=== PATIENT | female | born 2000 | race Caucasian/White ===

== ENCOUNTER 2019-01-24 00:28 | Inpatient (IN) | payer MEDICAID ==
[2019-01-24] MEDS ORDERED: Nalbuphine 10 MG/1 ML Vial IVPUSH PRN (02:30)
[2019-01-24] MEDS ORDERED: Citric Acid/Sodium Citrate Solution 30 ML Cup PO ONE (02:30)
[2019-01-24] MEDS ORDERED: ceFAZolin 1 GM in Premix Bag 1 BAG IV ONE (02:30)
[2019-01-24] MEDS ORDERED: ceFAZolin 2 GM in Premix Bag 1 BAG IV ONE (02:30)
[2019-01-24] MEDS ORDERED: Sodium Chloride 0.9% 10 ML Syringe FLUSH PRN (02:30)
[2019-01-24] MEDS ORDERED: Oxytocin/Lactated Ringers 20 UNIT/1,000 ML BAG IV SCH (02:30)
[2019-01-24] MEDS ORDERED: Lactated Ringers 1,000 ML IV SCH (02:30)
[2019-01-24] MEDS ORDERED: Metoclopramide 10 MG/2 ML SDV IVPUSH ONE (02:30)
--- NOTE | 2019-01-24 03:03 | PCM.LDHP ---
L&D History of Present Illness - General Date of Service: 01/24/19 Admit Problem/Dx: Patient Status Order with Admit Dx/Problem 01/24/19 00:56 Patient Status [ADT] Routine 01/24/19 02:30 Patient Status [ADT] Routine Admission Diagnosis/Problem Admission Diagnosis/Problem 01/24/19 02:47 Carroll is a 18-year-old 4 para 1112 white female in early, active labor , with a history of 2, desiring to do a trial of labor after section for vaginal after section was now developed severe abdominal pain in the area of her scar. Source of Information: Patient History Limitations: Reports: No Limitations - History of Present Illness Introduction:: Carroll is a 18-year-old 4 para 1112 white female in early, active labor , with a history of 2, desiring to do a trial of labor after section for vaginal after section was now developed severe abdominal pain in the area of her scar. She is approximately 38 -2/7 weeks gestational age based on a certain last menstrual period and supported by at least 3 ultrasounds. First ultrasound being done at 7-3/7 weeks gestational age. She started in labor during the night of 01/23/2019 and arrived in labor and delivery for observation.E patient had previously requested a trial of labor. The procedure of trial of labor with 2 C-sections as risk of uterine scar separation in the range of 2-3%, benefits, limitations and possible inability to successfully all discussed in detail with patient by Dr. Butcher during her course and again by myself at this time. She wished to proceed. Her contractions were mild to moderate and during the course of the very early evaluation in labor and delivery she developed severe pain she described as a tearing sensation in the area of her incision. She denied any bleeding. heart tones are reassuring. Contractions continue at approximately every 3-4 minutes. Because of this latest velamentously made to proceed with repeat lower uterine section transverse section through Pfannenstiel skin incision under spinal block. Consent is signed. Laboratory testing has been accomplished. 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 Her estimated date of delivery 01/19/2019 as by patient's working LMP supported by 3 ultrasounds. She transferred her care from [place] to Dr. Butcher's practice on December 07, 2018 at 31-3/7 weeks gestational age. She has had an unremarkable course since that time. Her previous deliveries have included: 1. term at 30-0/7 weeks delivered on 01/25/2016. 8 pound 6.2 ounce female delivered by primary section for breech presentation. 2. delivery at 36-0/7 weeks gestational age on 04/30/2017. 5 lbs. 0 oz.? repeat section done as the institution she delivered and did not allow for . Third spontaneous 10/2017 at 10-0/7 weeks gestational age. Past gynecologic history includes history of chlamydia. She is not using any control at the time of conception. Weight gain during the course of was approximately 30 pounds. laboratory testing: Blood is O+. Antibiotic screen was negative. Hemoglobin at first visit was 13.4 g/dL. Platelets are 472,000 at the same time. She is rubella immune. RPR is nonreactive. Hepatitis B surface antigen test was negative. HIV assay was nonreactive. Chlamydia and gonorrhea at first visit was negative. Second trimester testing showed hemoglobin 13.4 g/dL. Platelets are 472,000. One-hour GTT is 136 done on 2018. 3R GTT was not performed as patient's physician used 1 40 mg/dL as a cut off for abnormal 1 hour GTT. RPR through trimester was nonreactive. Group B strep screen was positive. Allergies: Bananas and Demerol. Medications: vitamins Past medical history: Unremarkable Past surgical history: 1. 2 2. Tonsillectomy 3. Laparoscopic Cholecystectomy Family history: Mother's health and family history unknown. Father is alive. No significant health problems noted. Paternal grandmother secondary to heart disease with NH in her 60s. Paternal grandfather secondary to pancreatic cancer. No anesthesia, bleeding, blood clotting problems noted in the family. Social history: Patient is single. Lives in the [facility] and then recently relocated from [place]. She does not use any 16 pounds L call, drugs or tobacco. Significant other's name is Luis Angel Bobby. Review of systems: Patient is reporting persistent contractions on a every 3 minute basis. Now has developed severe pain in the area of the previous C- section scar. She reports "the baby is trying to break through her incision" Skin: Negative Lungs: No infectious symptoms or shortness of breath Cardiovascular: No chest pain or exercise intolerance Breasts: No lumps, changes in size, pain, dimpling, discharge or axillary or supraclavicular concerns. GI: Negative : Negative Musculoskeletal: Negative Neurological: Negative In general the patient is well-developed, well-nourished, pleasant female of stated age in distress secondary to the pain described above. Vital signs stable. Patient is afebrile. Her weight evaluation in clinic for this 298 pounds. Blood pressure then was 124/66, pulse 101. Skin is warm dry without lesions. HEENT, neck and back within normal limits. Lungs are clear with good breath sounds in all lung jason. Cardiovascular exam shows regular and rhythm without murmurs. Breast evaluation not done at this time. Abdomen is gravid with fundal height consistent with term Genital exam done upon admission shows cervix to be 1 cm, 50% effaced, soft, -3 , mid position. Extremities and neurological exam are grossly within normal limits. 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: Reports: , Spontaneous - Past Surgical History GI Surgical History: Reports: Cholecystectomy Female Surgical History: Reports: Section (x2) H&P Review of Systems - Review of Systems: Review Of Systems: See Below L&D Exam - Exam Exam: See Below - Vital Signs Vital Signs: Last Vital Signs Temp 36.9 C 01/24/19 00:36 Pulse 91 01/24/19 00:36 Resp 18 01/24/19 00:36 BP 139/86 01/24/19 00:36 Pulse Ox 99 01/24/19 00:36 Weight: 138.074 kg Problem List Initiated/Reviewed/Updated: Yes Orders Last 24hrs: Active Orders 24 hr Category Date Time Status Patient Status [ADT] Routine ADT 01/24/19 02:30 Active Antiembolic Devices [RC] .Routine Care 01/24/19 02:35 Active Communication Order [RC] ROUTINE Care 01/24/19 02:30 Active Heart Tones [RC] PER UNIT ROUTINE Care 01/24/19 02:30 Active Non Stress Test [RC] PER UNIT ROUTINE Care 01/24/19 00:56 Active Peripheral IV Care [RC] . DIRECTED Care 01/24/19 02:31 Active Procedure Site Prep Instruct [RC] ASDIRECTED Care 01/24/19 02:30 Active Urinary Catheter Assessment [RC] ASDIRECTED Care 01/24/19 02:30 Active VTE/DVT Education [RC] PER UNIT ROUTINE Care 01/24/19 02:35 Active Verify Patient Consent Obtain [RC] PER UNIT ROUTINE Care 01/24/19 02:30 Active Vital Signs [RC] PER UNIT ROUTINE Care 01/24/19 00:56 Active Nothing Per Oral Diet [DIET] Diet 01/24/19 Breakfast Active CBC WITH AUTO DIFF [HEME] Stat Lab 01/24/19 02:30 Ordered RAPID PLASMA REAGIN,RPR [CHEM] Routine Lab 01/24/19 02:30 Ordered TYPE AND SCREEN [BBK] Routine Lab 01/24/19 02:30 Ordered Lactated Ringers [Ringers, Lactated] 1,000 ml Med 01/24/19 02:30 Active IV ASDIRECTED Nalbuphine [Nubain] Med 01/24/19 02:30 Active 10 mg IVPUSH Q2H PRN Oxytocin/Lactated Ringers [Pitocin in LR 20 Units/1,000 Med 01/24/19 02:30 Active ML] 20 unit in 1,000 ml IV TITRATE Sodium Chloride 0.9% [Saline Flush] Med 01/24/19 02:30 Active 10 ml FLUSH ASDIRECTED PRN ceFAZolin [Ancef] 1 gm Med 01/24/19 02:30 Active Premix Bag 1 bag IV ONETIME ceFAZolin [Ancef] 2 gm Med 01/24/19 02:30 Active Premix Bag 1 bag IV ONETIME DVT/VTE Prophylaxis Reflex [OM.PC] Routine Oth 01/24/19 02:30 Ordered Peripheral IV Insertion Adult [OM.PC] Routine Oth 01/24/19 02:30 Ordered Schedule Procedure [COMM] Per Unit Routine Oth 01/24/19 02:30 Ordered Schedule Procedure [COMM] Urgent Oth 01/24/19 02:47 Ordered Sequential Compression Device [OM.PC] Per Unit Routine Oth 01/24/19 02:35 Ordered Resuscitation Status Routine Resus Stat 01/24/19 00:56 Ordered Medication Orders Lactated Ringer's (Ringers, Lactated) 1,000 mls @ 125 mls/hr IV ASDIRECTED JACKIE Cefazolin Sodium/Dextrose 1 gm (/ Premix) 50 mls @ 100 mls/hr IV ONETIME ONE Stop: 01/24/19 02:59 Cefazolin Sodium/Dextrose 2 gm (/ Premix) 50 mls @ 100 mls/hr IV ONETIME ONE Stop: 01/24/19 02:59 Oxytocin/Lactated Ringer's (Pitocin In Lr 20 Units/1,000 Ml) 20 unit in 1,000 mls @ 500 mls/hr IV TITRATE JACKIE; Protocol Nalbuphine HCl (Nubain) 10 mg IVPUSH Q2H PRN PRN Reason: Pain Sodium Chloride (Saline Flush) 10 ml FLUSH ASDIRECTED PRN PRN Reason: Keep Vein Open Assessment/Plan Comment:: 1. 38-2/7 week intrauterine , early active labor, history of previous section 2 with desire for trial of labor after section for vaginal after section now experiencing severe incisional pain. Cannot rule out separation of uterine scar. 2. Group B strep status positive 3. RPR nonreactive, rubella shows immunity. 4. Patient plans to breast-feed 5. Risk factors for surgery include history of 2, obesity with body mass index of 44 Plan: 1. Repeat lower uterine segment transverse section through Franciscan incision under spinal block. Procedure, risks, benefits, alternatives of care discussed due to patient. She appears understand and wishes to proceed. Consent is signed. 2. Routine preoperative laboratory testing including CBC, type and screen, RPR. 3. Ancef 3 g IV preop for infection prophylaxis 4. DVT prophylaxis with SCDs 5. Pediatrics to attend delivery for care of the baby.
[2019-01-24] MEDS ORDERED: Morphine PF 10 MG/10 ML SDV ONE (03:05)
[2019-01-24] MEDS ORDERED: ceFAZolin 1 GM Vial ONE ×2 (03:05→03:31)
[2019-01-24] MEDS ORDERED: Phenylephrine 1% 10 MG/ML SDV ONE (03:05)
[2019-01-24] MEDS ORDERED: Bupivacaine 0.5% 30 ML SDV ONE (03:17)
[2019-01-24] MEDS ORDERED: Ondansetron 4 MG/2 ML SDV ONE (03:34)
[2019-01-24] MEDS ORDERED: Oxytocin 10 Units/1 ML SDV ONE (03:47)
[2019-01-24] MEDS ORDERED: Lactated Ringers 1,000 ML ONE (03:50)
[2019-01-24] MEDS ORDERED: Ketorolac 30 MG/ML SDV ONE (03:56)
[2019-01-24] MEDS ORDERED: diphenhydrAMINE 50 MG/ML SDV IVPUSH PRN ×2 (04:35→05:39)
--- NOTE | 2019-01-24 04:36 | PCM.POSTAN ---
POST ANESTHESIA ASSESSMENT - MENTAL STATUS Mental Status: Alert, Oriented - VITAL SIGNS Vital Signs: Last Vital Signs Temp 36.9 C 01/24/19 00:36 Pulse 91 01/24/19 00:36 Resp 18 01/24/19 00:36 BP 139/86 01/24/19 00:36 Pulse Ox 99 01/24/19 00:36 - RESPIRATORY Respiratory Status: Respiratory Rate WNL, Airway Patent, O2 Saturation Stable, Supplemental Oxygen - CARDIOVASCULAR CV Status: Pulse Rate WNL, Blood Pressure Stable - GASTROINTESTINAL GI Status: No Symptoms - PAIN Pain Score: 0 - POST OP HYDRATION Hydration Status: Adequate & Stable - OBSERVATIONS Free Text/Narrative:: no anesthesia complications noted
--- NOTE | 2019-01-24 04:38 | PCM.PREANE ---
Preanesthetic Assessment - Anesthesia/Transfusion/Family Hx Anesthesia History: Prior Anesthesia Without Reaction Family History of Anesthesia Reaction: No Transfusion History: No Prior Transfusion(s) - Review of Systems General: No Symptoms Pulmonary: No Symptoms Cardiovascular: No Symptoms Gastrointestinal: Abdominal Pain (incision) Neurological: No Symptoms Other: Reports: None - Physical Assessment NPO Status Date: 01/23/19 NPO Status Time: 18:00 Vital Signs: Last Vital Signs Temp 36.9 C 01/24/19 00:36 Pulse 91 01/24/19 00:36 Resp 18 01/24/19 00:36 BP 139/86 01/24/19 00:36 Pulse Ox 99 01/24/19 00:36 Height: 1.7 m Weight: 138.074 kg ASA Class: 2E Mental Status: Alert & Oriented x3 Airway Class: Mallampati = 2 Dentition: Reports: Normal Dentition Thyro-Mental Finger Breadths: 2 Mouth Opening Finger Breadths: 2 ROM/Head Extension: Full Lungs: Clear to Auscultation, Normal Respiratory Effort Cardiovascular: Regular Rate, Regular Rhythm - Lab Values: Laboratory Last Values WBC 15.64 K/mm3 (3.98-10.04) H 01/24/19 02:45 RBC 4.02 M/mm3 (3.98-5.22) 01/24/19 02:45 Hgb 10.6 gm/L (11.2-15.7) L 01/24/19 02:45 Hct 33.8 % (34.1-44.9) L 01/24/19 02:45 MCV 84.1 fl (79.4-94.8) 01/24/19 02:45 MCH 26.4 pg (25.6-32.2) 01/24/19 02:45 MCHC 31.4 g/dl (32.2-35.5) L 01/24/19 02:45 RDW Std Deviation 44.3 fL (36.4-46.3) 01/24/19 02:45 Plt Count 329 K/mm3 (182-369) 01/24/19 02:45 MPV 11.2 fl (9.4-12.3) 01/24/19 02:45 Neut % (Auto) 71.1 % (34.0-71.1) 01/24/19 02:45 Lymph % (Auto) 19.4 % (19.3-51.7) 01/24/19 02:45 Assumption % (Auto) 8.1 % (4.7-12.5) 01/24/19 02:45 Eos % (Auto) 0.6 (0.7-5.8) L 01/24/19 02:45 Baso % (Auto) 0.1 % (0.1-1.2) 01/24/19 02:45 Neut # (Auto) 11.12 K/mm3 (1.56-6.13) H 01/24/19 02:45 Lymph # (Auto) 3.03 K/mm3 (1.18-3.74) 01/24/19 02:45 Assumption # (Auto) 1.27 K/mm3 (0.24-0.36) H 01/24/19 02:45 Eos # (Auto) 0.10 K/mm3 (0.04-0.36) 01/24/19 02:45 Baso # (Auto) 0.01 K/mm3 (0.01-0.08) 01/24/19 02:45 Manual Slide Review Abnormal smear 01/24/19 02:45 Blood Type O POSITIVE 01/24/19 02:45 Gel Antibody Screen Negative 01/24/19 02:45 - Allergies Allergies/Adverse Reactions: Allergies Allergy/AdvReac Type Severity Reaction Status Date / Time banana Allergy Blisters Verified 01/24/19 00:37 meperidine [From Demerol] Allergy Airway Verified 01/24/19 00:37 Tightness - Anesthesia Plan Pre-Op Medication Ordered: Antacids - Acknowledgements Anesthesia Type Planned: Spinal Pt an Appropriate Candidate for the Planned Anesthesia: Yes Alternatives and Risks of Anesthesia Discussed w Pt/Guardian: Yes Pt/Guardian Understands and Agrees with Anesthesia Plan: Yes PreAnesthesia Questionnaire Gastrointestinal History: Reports: GERD 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: 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: , 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 - Past Surgical History GI Surgical History: Reports: Cholecystectomy Female Surgical History: Reports: Section (x2) - HOME MEDS Home Medications: Home Meds PNV95/Ferrous Fumarate/FA [ Tablet] 1 each PO DAILY 12/03/18 [History] - CURRENT (IN HOUSE) MEDS Current Meds: Current Medications Diphenhydramine HCl (Benadryl) 25 mg IVPUSH Q6H PRN PRN Reason: Itching Lactated Ringer's (Ringers, Lactated) 1,000 mls @ 125 mls/hr IV ASDIRECTED JACKIE Last Admin: 01/24/19 02:58 Dose: 125 mls/hr Oxytocin/Lactated Ringer's (Pitocin In Lr 20 Units/1,000 Ml) 20 unit in 1,000 mls @ 500 mls/hr IV TITRATE JACKIE; Protocol Nalbuphine HCl (Nubain) 10 mg IVPUSH Q2H PRN PRN Reason: Pain Sodium Chloride (Saline Flush) 10 ml FLUSH ASDIRECTED PRN PRN Reason: Keep Vein Open Discontinued Medications Bupivacaine HCl (Marcaine 0.5%) Confirm Administered Dose 30 ml .ROUTE .STK-MED ONE Stop: 01/24/19 03:18 Cefazolin Sodium (Ancef) Confirm Administered Dose 2 gm .ROUTE .STK-MED ONE Stop: 01/24/19 03:06 Cefazolin Sodium (Ancef) Confirm Administered Dose 1 gm .ROUTE .STK-MED ONE Stop: 01/24/19 03:32 Citric Acid/Sodium Citrate (Bicitra Solution) 30 ml PO ONETIME ONE Stop: 01/24/19 02:31 Last Admin: 01/24/19 02:58 Dose: 30 ml Cefazolin Sodium/Dextrose 1 gm (/ Premix) 50 mls @ 100 mls/hr IV ONETIME ONE Stop: 01/24/19 02:59 Cefazolin Sodium/Dextrose 2 gm (/ Premix) 50 mls @ 100 mls/hr IV ONETIME ONE Stop: 01/24/19 02:59 Lactated Ringer's (Ringers, Lactated) Confirm Administered Dose 1,000 mls @ as directed .ROUTE .STK-MED ONE Stop: 01/24/19 03:51 Ketorolac Tromethamine (Toradol) Confirm Administered Dose 30 mg .ROUTE .STK- MED ONE Stop: 01/24/19 03:57 Metoclopramide HCl (Reglan) 10 mg IVPUSH ONETIME ONE Stop: 01/24/19 02:31 Last Admin: 01/24/19 02:58 Dose: 10 mg Morphine Sulfate (Duramorph Pf) Confirm Administered Dose 10 mg .ROUTE .STK-MED ONE Stop: 01/24/19 03:06 Ondansetron HCl (Zofran) Confirm Administered Dose 4 mg .ROUTE .STK-MED ONE Stop: 01/24/19 03:35 Oxytocin (Pitocin) Confirm Administered Dose 20 unit .ROUTE .STK-MED ONE Stop: 01/24/19 03:48 Phenylephrine HCl (Andrzej-Synephrine) Confirm Administered Dose 10 mg .ROUTE .STK- MED ONE Stop: 01/24/19 03:06
--- NOTE | 2019-01-24 04:43 | PCM.OPNOTE ---
- General Post-Op/Procedure Note Date of Surgery/Procedure: 01/24/19 Operative Procedure(s): Repeat lower uterine segment transverse section through Pfannenstiel skin incision Findings: Minimal scarring ovaries and fallopian tubes. Uterus was consistent with term . Amniotic fluid was clear. Baby in vertex presentation. No other abnormalities noted. Pre Op Diagnosis: 1. 38-2/7 week intrauterine , active labor. 2. History of previous section 2 with desire for repeat section but with onset of severe lower abdominal pain Post-Op Diagnosis: Same with delivery of a viable 3420 g (7 lbs. 9 oz.) male with Apgars of 8 and 9 at 0348 hrs. on 01/24/2019. Anesthesia Technique: Spinal Other Anesthesia Type: Marcaine 0.5% 20 mL local in the incision site Primary Surgeon: Arvind Hobosn Secondary Surgeon: Amy Sanchez Anesthesia Provider: Edgar Arellano Supervisor Hard Candy: Valentin Sanchez Reason Supervisor Hard Candy Was Necessary: Retraction, assistance, patient safety, quality. Fluid Replacement, Intraop: 2,500 Output, Urine Amount: 300 EBL in mLs: 1,100 Drain/Tube Comments:: Indwelling bladder catheter Complications: None Condition: Good Free Text/Narrative:: Surgery duration: 41 minutes Surgery duration: Procedure: The patient is appropriately consented. Patient was transferred to the room and placed in a sitting position. Spinal anesthesia was administered. After confirmation of adequate anesthesia patient was placed in a supine position with a wedge under her right side to facilitate left lateral positioning. The patient was prepped and draped in usual fashion after Ledbetter catheter was already placed . The anesthetic was checked and found to be adequate. The Traxi panniculus retraction drape was then applied. Good retraction obtained. 20 mL of Marcaine 0.5% was injected locally in the Pfannenstiel incision site. The Pfannenstiel skin incision was then made and carried down through skin, subcutaneous and fascial layers. The fascia was then undermined superiorly and inferiorly to allow for adequate operating room. The recti muscles midline and preperitoneal fat was bluntly dissected. Peritoneal cavity was entered longitudinally. The vesicouterine peritoneum was then incised transversely and bladder flap was developed. Myometrium was incised transversely to the level of the amniotic sac. This incision was extended bilaterally in a blunt fashion. The amniotic sac was then ruptured resulting in clear amniotic fluid. A hand is placed in the low uterine segment and the baby's head was brought forth through the incision. The baby was completely delivered using fundal pressure in a routine fashion. The nose and mouth were bulb suctioned. Baby's cord was clamped x2 cut and baby was handed off to attending commercial real estate broker Dr Gaona. Placenta was expressed after cord blood was obtained. Uterus was then exteriorized to allow for easier closure. The cervix was assessed and found to be dilated adequately to allow egress of blood. The uterus was closed in 2 layers. The first layer a running locked suture of 0 Monocryl, the second layer a running locked vertical mattress suture of 0 Monocryl. [id number] suture was placed at mid incision to control 1 bleeder. Hemostasis confirmed at this time. Sponge instrument needle counts are correct. The uterus was returned to the abdominal cavity and lateral gutters were cleared of blood. Once again sponge needle counts are correct. The anterior abdominal wall was closed with a #1 PDS suture from angle to angle. The subcutaneous area was found to be free of any bleeders. interrupted sutures of 3-0 Monocryl were used to reapproximate the subcutaneous layer.Skin was closed with a running subcuticular stitch of 3-0 Monocryl in a vertical mattress suture fashion using a Rajiv needle. Prineo mesh/glue was then applied to further approximate the incision. The Traxi panniculus retraction drape was left in place and will be removed within 24 hours. It should be noted that patient received 3 g of Ancef preoperatively for infection prophylaxis and had Pitocin infused after delivery of the placenta to facilitate uterine contraction. She also had sequential compression stockings in place for DVT prophylaxis. Patient was discharged from the operating room in satisfactory condition.
[2019-01-24] MEDS ORDERED: Ibuprofen 800 MG Tab PO SCH (05:39)
[2019-01-24] MEDS ORDERED: Naloxone 0.4 MG/ML SDV IVPUSH PRN (05:39)
[2019-01-24] MEDS ORDERED: ePHEDrine 50 MG/ML SDV IVPUSH PRN (05:39)
[2019-01-24] MEDS ORDERED: Ondansetron 4 MG/2 ML SDV IV PRN (05:39)
[2019-01-24] MEDS ORDERED: Lanolin 100% Cream 7 GM Tube TOP PRN (05:39)
[2019-01-24] MEDS ORDERED: Dextrose 5%-Lactated Ringers 1,000 ML IV SCH (05:39)
[2019-01-24] MEDS: Docusate Sodium 100 MG Cap PO SCH ×2 (07:34→18:45)
[2019-01-24] MEDS ORDERED: Diphtheria,Pertussis(Acell),Tetanus Vaccine 0.5 ML SDV IM ONE ×2 (08:00→10:00)
[2019-01-24] MEDS ORDERED: [UNRECOGNIZED DRUG - OTHER] IM ONE (08:00)
[2019-01-24] MEDS: Simethicone 80 MG Tab.Chew PO SCH ×4 (10:38→20:53)
[2019-01-24] MEDS: Prenatal Multivitamin with Calcium/Folic Acid/Iron Tab PO SCH (10:39)
[2019-01-24] MEDS: Ibuprofen 800 MG Tab PO SCH ×2 (10:39→18:45)
[2019-01-25] MEDS: Ibuprofen 800 MG Tab PO SCH ×3 (02:52→21:40)
[2019-01-25] MEDS: Docusate Sodium 100 MG Cap PO SCH ×2 (05:44→21:40)
[2019-01-25] MEDS: Acetaminophen/oxyCODONE 325-5 MG Tab PO PRN ×2 (08:57→13:31)
--- NOTE | 2019-01-25 09:16 | PCM.SN ---
- Free Text/Narrative Note: note: Patient is doing well in the period. Minimal lochia, voiding well, ambulated without problems. Nursing without concerns. Patient is afebrile, vital signs are stable Lungs are clear with good breath sounds in all lung jason. Cardiovascular exam shows regular and rhythm. Abdomen is flat, soft, uterus is below the umbilicus and is firm and nontender. Incision appears intact, and dry without evidence of seroma, hematoma or infection. Legs are nontender. Minimal edema noted in the lower extremity bilaterally. Assessment: /postoperative recovery going well. Plan: Routine care. Patient be discharged home within the next 24-48 hours.
[2019-01-25] MEDS: Prenatal Multivitamin with Calcium/Folic Acid/Iron Tab PO SCH (10:54)
[2019-01-25] MEDS: Simethicone 80 MG Tab.Chew PO SCH ×4 (10:55→21:43)
[2019-01-26] MEDS: Ibuprofen 800 MG Tab PO SCH ×2 (03:57→04:22)
[2019-01-26] MEDS ORDERED: Magnesium Hydroxide 400 MG/5 ML Susp 30 ML Cup PO ONE (04:06)
[2019-01-26] MEDS: Docusate Sodium 100 MG Cap PO SCH ×2 (04:24→06:43)
--- NOTE | 2019-01-26 07:59 | PCM.DCSUM1 ---
Discharge Summary - Hospital Course Free Text/Narrative:: Carroll is a 18-year-old multigravida white female who had a history of section 2 was at 38-2/7 weeks gestational age on 01/24/2019 when admitted in active labor. She desired a a trial of labor to attempt a vaginal after section. She initially started out in this fashion but very early in the course of her labor she developed severe tearing sensation in the area of her uterine incision. Decision was made at that time to proceed to repeat section. Incision section was performed. Findings at time of section included: Minimal scarring ovaries and fallopian tubes. Uterus was consistent with term . Amniotic fluid was clear. Baby in vertex presentation. No other abnormalities noted. Prep diagnosis was: 1. 38-2/7 week intrauterine , active labor. 2. History of previous section 2 with desire for repeat section but with onset of severe lower abdominal pain She delivered a viable, lord, male infant with Apgars of 8 and 9, weight of 3420 g (7 lbs. 9 oz.) at 0348 hrs. on 01/24/2019. Please see operative report for details. Surgery was done with spinal block. Duramorph was used at the end of the procedure to give long-term pain relief after surgery. patient is done very well. She is recovering without concerns. She is nursing well, voiding without problems and ambulating well. she is ready for discharge home. Diagnosis: Stroke: No - Discharge Data Discharge Date: 01/26/19 Discharge Disposition: [facility] Condition: Good - Patient Summary/Data Operative Procedure(s) Performed: Repeat lower uterine segment transverse section through Pfannenstiel skin incision - Patient Instructions Diet: Regular Diet as Tolerated (Nursing diet with increase calories calcium is recommended) Activity: As Tolerated (No intercourse tampons four weeks. No lifting greater than 15 pounds or driving a car 1 week.) Driving: Do Not Drive Showering/Bathing: May Shower Wound/Incision Care: Keep Operative Site/Wound Site Clean and Dry Notify Provider of: Fever, Increased Pain, Swelling and Redness, Nausea and/or Vomiting - Discharge Plan Home Medications: Home Meds PNV95/Ferrous Fumarate/FA [ Tablet] 1 each PO DAILY 12/03/18 [History] Acetaminophen/oxyCODONE [Percocet 325-5 MG] 2 tab PO Q4H PRN tablet 01/26/19 [ Rx] Ibuprofen [Motrin] 800 mg PO Q8H tablet 01/26/19 [Rx] Referrals: Ember Butcher MD [Physician] - (Return to [facility]. [facility] weeks for removal of Prineo mesh.) - Discharge Summary/Plan Comment DC Time >30 min.: No Discharge Summary/Plan Comment: Discharge instructions: 1. Discharge home 2. Diet, activity and follow-up discussed with patient. Recommend nursing diet with increased calories and calcium. 3. Precautions given concern increased pain, bleeding, temperature, signs/ symptoms of DVT/PE. 4. Medications per home medication was printed, discussed with and given to the patient. 5. Return to clinic-Dr. Butcher, [facility]- in 2 weeks. Diagnosis: Term -delivered Condition: Good - Patient Data Vitals - Most Recent: Last Vital Signs Temp 36.8 C 01/26/19 03:46 Pulse 87 01/26/19 03:46 Resp 16 01/26/19 03:46 BP 119/51 L 01/26/19 03:46 Pulse Ox 99 01/26/19 03:46 Weight - Most Recent: 138.074 kg I&O - Last 24 hours: Intake & Output 01/25/19 01/26/19 01/26/19 22:59 06:59 14:59 Intake Total 320 Balance 320 Lab Results - Last 24 hrs: Laboratory Results - last 24 hr 01/24/19 Range/Units 02:45 RPR Non-reactive (NONREACTIVE) Med Orders - Current: Current Medications Diphenhydramine HCl (Benadryl) 25 mg IVPUSH Q6H PRN PRN Reason: Itching Last Admin: 01/24/19 08:04 Dose: 25 mg Diphenhydramine HCl (Benadryl) 25 mg IVPUSH Q6H PRN PRN Reason: Itching or Nausea Docusate Sodium (Colace) 100 mg PO Q12H JACKIE Last Admin: 01/26/19 06:43 Dose: Not Given Emollient Ointment (Lansinoh Hpa) 0 gm TOP ASDIRECTED PRN PRN Reason: Sore Nipples Ephedrine Sulfate (Ephedrine Sulfate) 5 mg IVPUSH SEECOMMENT PRN PRN Reason: Other Ibuprofen (Motrin) 800 mg PO Q8H [facility] Last Admin: 01/26/19 04:22 Dose: 800 mg Naloxone HCl (Narcan) 0.1 mg IVPUSH SEECOMMENT PRN PRN Reason: Respiratory Depression Ondansetron HCl (Zofran) 4 mg IV Q4H PRN PRN Reason: Nausea/Vomiting Oxycodone/Acetaminophen (Percocet 325-5 Mg) 2 tab PO Q4H PRN PRN Reason: Pain (moderate 4-6) Last Admin: 01/25/19 13:31 Dose: 2 tab Prenat Multivit/Orthotic Finish Grinding Technician/Iron/Folic Ac ( Plus Iron) 1 each PO DAILY [facility] Last Admin: 01/25/19 10:54 Dose: 1 each Simethicone (Simethicone) 160 mg PO QID [facility] Last Admin: 01/25/19 21:43 Dose: 160 mg Discontinued Medications Bupivacaine HCl (Marcaine 0.5%) Confirm Administered Dose 30 ml .ROUTE .STK-MED ONE Stop: 01/24/19 03:18 Last Admin: 01/24/19 03:42 Dose: 20 ml Cefazolin Sodium (Ancef) Confirm Administered Dose 2 gm .ROUTE .STK-MED ONE Stop: 01/24/19 03:06 Cefazolin Sodium (Ancef) Confirm Administered Dose 1 gm .ROUTE .STK-MED ONE Stop: 01/24/19 03:32 Citric Acid/Sodium Citrate (Bicitra Solution) 30 ml PO ONETIME ONE Stop: 01/24/19 02:31 Last Admin: 01/24/19 02:58 Dose: 30 ml Diphtheria/Tetanus/Acell Pertussis (Adacel) 0.5 ml IM .ONCE ONE Stop: 01/24/19 10:01 Last Admin: 01/24/19 18:49 Dose: Not Given Lactated Ringer's (Ringers, Lactated) 1,000 mls @ 125 mls/hr IV ASDIRECTED [facility] Last Admin: 01/24/19 02:58 Dose: 125 mls/hr Cefazolin Sodium/Dextrose 1 gm (/ Premix) 50 mls @ 100 mls/hr IV ONETIME ONE Stop: 01/24/19 02:59 Last Admin: 01/24/19 07:36 Dose: Not Given Cefazolin Sodium/Dextrose 2 gm (/ Premix) 50 mls @ 100 mls/hr IV ONETIME ONE Stop: 01/24/19 02:59 Last Admin: 01/24/19 07:36 Dose: Not Given Oxytocin/Lactated Ringer's (Pitocin In Lr 20 Units/1,000 Ml) 20 unit in 1,000 mls @ 500 mls/hr IV TITRATE JACKIE; Protocol Lactated Ringer's (Ringers, Lactated) Confirm Administered Dose 1,000 mls @ as directed .ROUTE .STK-MED ONE Stop: 01/24/19 03:51 Dextrose/Lactated Ringer's (Dextrose 5%-Lactated Ringers) 1,000 mls @ 125 mls/ hr IV ASDIRECTED JACKIE Stop: 01/24/19 13:38 Last Admin: 01/24/19 05:50 Dose: 125 mls/hr Ibuprofen (Motrin) 800 mg PO Q8H JACKIE Last Admin: 01/24/19 07:36 Dose: Not Given Ketorolac Tromethamine (Toradol) Confirm Administered Dose 30 mg .ROUTE .STK- MED ONE Stop: 01/24/19 03:57 Magnesium Hydroxide (Milk Of Magnesia) 30 ml PO ONETIME ONE Stop: 01/26/19 04:07 Last Admin: 01/26/19 04:21 Dose: 30 ml Metoclopramide HCl (Reglan) 10 mg IVPUSH ONETIME ONE Stop: 01/24/19 02:31 Last Admin: 01/24/19 02:58 Dose: 10 mg Morphine Sulfate (Duramorph Pf) Confirm Administered Dose 10 mg .ROUTE .STK-MED ONE Stop: 01/24/19 03:06 Nalbuphine HCl (Nubain) 10 mg IVPUSH Q2H PRN PRN Reason: Pain Ondansetron HCl (Zofran) Confirm Administered Dose 4 mg .ROUTE .STK-MED ONE Stop: 01/24/19 03:35 Oxytocin (Pitocin) Confirm Administered Dose 20 unit .ROUTE .STK-MED ONE Stop: 01/24/19 03:48 Phenylephrine HCl (Andrzej-Synephrine) Confirm Administered Dose 10 mg .ROUTE .STK- MED ONE Stop: 01/24/19 03:06 Sodium Chloride (Saline Flush) 10 ml FLUSH ASDIRECTED PRN PRN Reason: Keep Vein Open
[2019-01-26] MEDS: Simethicone 80 MG Tab.Chew PO SCH (10:51)
[2019-01-26] MEDS: Prenatal Multivitamin with Calcium/Folic Acid/Iron Tab PO SCH (10:51)
== END 2019-01-26 10:00 | disposition home or self-care (01) | DRG 788 ==
LOC: JD.OBCHECK 00:28 → JD.OB 03:30
PROVIDERS: ADMIT Obstetrics & Gynecology; ATTEND Obstetrics & Gynecology
PROC: 10D00Z1 Extraction of Products of Conception, Low, Open Approach (ICD-10-PCS; principal; 2019-01-24)
DX: O34.211 Maternal care for low transverse scar from previous cesarean delivery (principal); Z3A.38 38 weeks gestation of pregnancy; Z37.0 Single live birth; Z79.899 Other long term (current) drug therapy; Z91.018 Allergy to other foods; O99.824 Streptococcus B carrier state complicating childbirth; Z88.8 Allergy status to other drugs, medicaments and biological substances; Z90.89 Acquired absence of other organs; Z90.49 Acquired absence of other specified parts of digestive tract
CPT/HCPCS: 01961; 36415; 59025; 85025; 86592; 86850; 86900; 86901; A9270-GY; J0690; J1200; J1885; J2270; J2370; J2405; J2590; J2765; J3490; J7042; J7120

== ENCOUNTER 2019-04-17 11:39 | Emergency (ER) | payer MEDICAID ==
--- NOTE | 2019-04-17 12:29 | EDM.PDOC ---
ED HPI GENERAL MEDICAL PROBLEM - General Chief Complaint: Neurological Problem Stated Complaint: POSS SEIZURE Time Seen by Provider: 04/17/19 12:01 Source of Information: Reports: Patient, Family History Limitations: Reports: No Limitations - History of Present Illness INITIAL COMMENTS - FREE TEXT/NARRATIVE: patient presents with what sounds like seizure activity. from C- section delivery of her third child. She did have some gestational diabetes during the . She just got started back on Depo-Provera month ago and has not had her menstrual cycle. She presents today after having a seizure this morning. Witnessed byhusband wher tense up both her arms and legs and just generally looking off in the distance and unresponsive. She then had an episode of some what sounds like postictal state where she is confused and out of it along with having sore muscles in her upper or lower extremities and abdomen abdomen. Onset of these symptoms have been a week ago. First seizure was witnessed by the as well. No fall trauma or injury with any of these events. No history of any seizures in the past. No significant head injuries, no family history of seizures. Patient has been on a new medication last month for anxiety depression. She denies any alcohol or drug use. She does lay has not been sleeping very well with now 3 little children in the house. She currently is bottle feeding. Not taking any other medications, no allergies has had 3 C-sections. Onset: Sudden Duration: Day(s):, Getting Worse Location: Reports: Generalized Quality: Reports: Ache Severity: Moderate Improves with: Reports: None Worsens with: Reports: None Associated Symptoms: Reports: Confusion, Headaches, Seizure. Denies: Chest Pain , Diaphoresis, Nausea/Vomiting, Shortness of Breath, Weakness Head Pain Score (Numeric/FACES): 9 - Related Data Allergies Allergy/AdvReac Type Severity Reaction Status Date / Time banana Allergy Blisters Verified 04/17/19 11:47 meperidine [From Demerol] Allergy Airway Verified 04/17/19 11:47 Tightness Home Meds: Home Meds PNV95/Ferrous Fumarate/FA [ Tablet] 1 each PO DAILY 12/03/18 [History] Acetaminophen/oxyCODONE [Percocet 325-5 MG] 2 tab PO Q4H PRN tablet 01/26/19 [ Rx] Ibuprofen [Motrin] 800 mg PO Q8H tablet 01/26/19 [Rx] Past Medical History Gastrointestinal History: Reports: GERD 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 Denies: Eye Pain, Glasses, Rhinitis Respiratory: Reports: Cough. Denies: Shortness of Breath, Hemoptysis Cardiovascular: Denies: Chest Pain, Blood Pressure Problem, Lightheadedness, Palpitations, Syncope Endocrine: Denies: Fatigue, High Glucose, Low Glucose GI/Abdominal: Reports: Abdominal Pain. Denies: Decreased Appetite, Nausea, Vomiting : Denies: Dysuria, Hematuria, Incontinence, Irregular Menses Musculoskeletal: Reports: Arm Pain, Leg Pain, Muscle Pain. Denies: Neck Pain Skin: Denies: Jaundice, Rash, Erythema Neurological: Reports: Headache, Paresthesia, Seizure. Denies: Numbness, Pre- Existing Deficit, Tingling, Tremors, Trouble Speaking, Difficulty Walking, Weakness, Change in Speech, Gait Disturbance Psychiatric: Denies: No Symptoms, Agitation, Homicidal Ideation - Physical Exam Exam: See Below Exam Limited By: No Limitations General Appearance: Alert, WD/WN, No Apparent Distress. No: Anxious Eye Exam: Bilateral Eye: EOMI, PERRL, Proptosis Ears: Normal TMs Nose: Normal Inspection, Normal Mucosa Throat/Mouth: Normal Inspection, Normal Lips, Normal Teeth, Normal Oropharynx Head Exam: Atraumatic, Normocephalic Neck: Normal Inspection, Supple, Non-Tender, Full Range of Motion. No: Limited Range of Motion, Lymphadenopathy (L), Lymphadenopathy (R) Respiratory/Chest: No Respiratory Distress, Lungs Clear, Normal Breath Sounds, No Accessory Muscle Use Cardiovascular: Normal Peripheral Pulses, Regular Rate, Rhythm, No Edema, No Gallop, No JVD, No Murmur GI/Abdominal: Normal Bowel Sounds, Soft, Non-Tender, No Organomegaly, No Distention Neuro Exam (Abbreviated): Alert, Oriented, CN II-XII Intact, Normal Cognition, Normal Gait, Normal Reflexes, No Motor/Sensory Deficits. No: Confused, Disoriented, Memory Loss Remote Events, Memory Loss Recent Events, Abnormal Reflexes, Sensory/Motor Deficit Extremities: Normal Inspection, Normal Range of Motion, No Pedal Edema, Normal Capillary Refill Psychiatric: Normal Affect, Normal Mood. No: Anxious, Depressed Mood Skin Exam: Warm, Dry, Intact Course - Vital Signs Text/Narrative:: not sent with sounds like tonic-clonic type seizures. They're definitlye some things that could lower her seizure threshold including medication, lack of sleep and stress however need to rule out with initial CT had evaluation and lab evaluation. Last Recorded V/S: Last Vital Signs Temp 97.6 F 04/17/19 11:48 Pulse 68 04/17/19 11:48 Resp 16 04/17/19 11:48 BP 142/75 H 04/17/19 11:48 Pulse Ox 94 L 04/17/19 11:48 - Orders/Labs/Meds Orders: Active Orders 24 hr Category Date Time Status Peripheral IV Care [RC] . DIRECTED Care 04/17/19 12:59 Active Sodium Chloride 0.9% [Saline Flush] Med 04/17/19 12:59 Active 10 ml FLUSH ASDIRECTED PRN Peripheral IV Insertion Adult [OM.PC] Stat Oth 04/17/19 12:58 Ordered Medication Orders Sodium Chloride (Saline Flush) 10 ml FLUSH ASDIRECTED PRN PRN Reason: Keep Vein Open Last Admin: 04/17/19 13:03 Dose: 10 ml Labs: Laboratory Tests 04/17/19 04/17/19 04/17/19 Range/Units 12:40 12:40 12:40 WBC 10.13 H (3.98-10.04) K/mm3 RBC 4.98 (3.98-5.22) M/mm3 Hgb 13.0 D (11.2-15.7) gm/dl Hct 40.0 (34.1-44.9) % MCV 80.3 D (79.4-94.8) fl MCH 26.1 (25.6-32.2) pg MCHC 32.5 (32.2-35.5) g/dl RDW Std Deviation 46.3 (36.4-46.3) fL Plt Count 434 H D (182-369) K/mm3 MPV 10.6 (9.4-12.3) fl Neutrophils % (Manual) 63 H (40-60) % Band Neutrophils % 0 (0-10) % Lymphocytes % (Manual) 27 (20-40) % Atypical Lymphs % 0 % Monocytes % (Manual) 9 (2-10) % Eosinophils % (Manual) 1 (0.7-5.8) % Basophils % (Manual) 0 L (0.1-1.2) Platelet Estimate Increased RBC Morph Comment Normal Sodium 145 (136-145) mEq/L Potassium 4.1 (3.5-5.1) mEq/L Chloride 108 H (98-107) mEq/L Carbon Dioxide 27 (21-32) mEq/L Anion Gap 14.1 (5-15) BUN 17 (7-18) mg/dL Creatinine 1.0 (0.55-1.02) mg/dL Est Cr Clr Drug Dosing 87.27 mL/min Estimated GFR (MDRD) > 60 (>60) mL/min BUN/Creatinine Ratio 17.0 (14-18) Glucose 79 (74-106) mg/dL Calcium 9.2 (8.5-10.1) mg/dL Total Bilirubin 0.4 (0.2-1.0) mg/dL AST 31 (15-37) U/L ALT 101 H (14-59) U/L Alkaline Phosphatase 86 (46-116) U/L Creatine Kinase 69 (26-192) U/L Total Protein 7.7 (6.4-8.2) g/dl Albumin 3.8 (3.4-5.0) g/dl Globulin 3.9 gm/dL Albumin/Globulin Ratio 1.0 (1-2) HCG, Qual Negative (NEGATIVE) Urine Color (Yellow) Urine Appearance (Clear) Urine pH (5.0-8.0) Ur Specific Schurz (1.005-1.030) Urine Protein (Negative) Urine Glucose (UA) (Negative) Urine Ketones (Negative) Urine Occult Blood (Negative) Urine Nitrite (Negative) Urine Bilirubin (Negative) Urine Urobilinogen (0.2-1.0) Ur Leukocyte Esterase (Negative) Urine RBC (0-5) /hpf Urine WBC (0-5) /hpf Ur Epithelial Cells (0-5) /hpf Urine Bacteria (FEW) /hpf Urine Mucus (FEW) /hpf Urine Opiates Screen (YBSSOM=898) Ur Buprenorphine Scrn (CUTOFF=10) Ur Oxycodone Screen (VGS5UA=324) Urine Methadone Screen (UDLJWZ=573) Ur Propoxyphene Screen (YLYATR=082) Ur Barbiturates Screen (TZCNCW=688) Ur Tricyclics Screen (YARPAW=413) Ur Phencyclidine Scrn (CUTOFF=25) Ur Amphetamine Screen (EJRVYK=925) U Methamphetamines Scrn (SFKBNF=800) U Benzodiazepines Scrn (WCWNPA=056) U Cocaine Metab Screen (HHOLDG=507) U Marijuana (THC) Screen (CUTOFF=50) Ethyl Alcohol 0.00 (0.00) gm% 04/17/19 04/17/19 Range/Units 12:55 12:55 WBC (3.98-10.04) K/mm3 RBC (3.98-5.22) M/mm3 Hgb (11.2-15.7) gm/dl Hct (34.1-44.9) % MCV (79.4-94.8) fl MCH (25.6-32.2) pg MCHC (32.2-35.5) g/dl RDW Std Deviation (36.4-46.3) fL Plt Count (182-369) K/mm3 MPV (9.4-12.3) fl Neutrophils % (Manual) (40-60) % Band Neutrophils % (0-10) % Lymphocytes % (Manual) (20-40) % Atypical Lymphs % % Monocytes % (Manual) (2-10) % Eosinophils % (Manual) (0.7-5.8) % Basophils % (Manual) (0.1-1.2) Platelet Estimate RBC Morph Comment Sodium (136-145) mEq/L Potassium (3.5-5.1) mEq/L Chloride (98-107) mEq/L Carbon Dioxide (21-32) mEq/L Anion Gap (5-15) BUN (7-18) mg/dL Creatinine (0.55-1.02) mg/dL Est Cr Clr Drug Dosing mL/min Estimated GFR (MDRD) (>60) mL/min BUN/Creatinine Ratio (14-18) Glucose (74-106) mg/dL Calcium (8.5-10.1) mg/dL Total Bilirubin (0.2-1.0) mg/dL AST (15-37) U/L ALT (14-59) U/L Alkaline Phosphatase (46-116) U/L Creatine Kinase (26-192) U/L Total Protein (6.4-8.2) g/dl Albumin (3.4-5.0) g/dl Globulin gm/dL Albumin/Globulin Ratio (1-2) HCG, Qual (NEGATIVE) Urine Color Yellow (Yellow) Urine Appearance Clear (Clear) Urine pH 6.0 (5.0-8.0) Ur Specific Schurz 1.025 (1.005-1.030) Urine Protein Trace H (Negative) Urine Glucose (UA) Negative (Negative) Urine Ketones Negative (Negative) Urine Occult Blood Negative (Negative) Urine Nitrite Negative (Negative) Urine Bilirubin Negative (Negative) Urine Urobilinogen 0.2 (0.2-1.0) Ur Leukocyte Esterase Trace H (Negative) Urine RBC 0-5 (0-5) /hpf Urine WBC 0-5 (0-5) /hpf Ur Epithelial Cells 5-10 H (0-5) /hpf Urine Bacteria Few (FEW) /hpf Urine Mucus Few (FEW) /hpf Urine Opiates Screen Negative (QYFSWG=578) Ur Buprenorphine Scrn Negative (CUTOFF=10) Ur Oxycodone Screen Negative (NBV1TB=852) Urine Methadone Screen Negative (AAPAOU=662) Ur Propoxyphene Screen Negative (HHLINL=320) Ur Barbiturates Screen Negative (XHQEHA=595) Ur Tricyclics Screen Negative (SXSSAO=602) Ur Phencyclidine Scrn Negative (CUTOFF=25) Ur Amphetamine Screen Negative (PYXYYP=751) U Methamphetamines Scrn Negative (GKYLDT=609) U Benzodiazepines Scrn Negative (VJSZCJ=287) U Cocaine Metab Screen Negative (GCUHGV=107) U Marijuana (THC) Screen Negative (CUTOFF=50) Ethyl Alcohol (0.00) gm% Meds: Medications Generic Name Dose Route Start Last Admin Trade Name Freq PRN Reason Stop Dose Admin Sodium Chloride 10 ml 04/17/19 12:59 04/17/19 13:03 Saline Flush FLUSH 10 ml ASDIRECTED PRN Administration Keep Vein Open Discontinued Medications Generic Name Dose Route Start Last Admin Trade Name Freq PRN Reason Stop Dose Admin Levetiracetam 1,000 mg/ Sodium 110 mls @ 400 mls/hr 04/17/19 12:59 04/17/19 13:07 Chloride IV 04/17/19 13:13 400 mls/hr ONETIME ONE Administration - Radiology Interpretation Free Text/Narrative:: CT head reviewed with radiologist and shows small low density finding within the posterior left basal ganglia most likely due to prominent perivascular space given the patient's symptoms of seizures MRI could be considered to confirm other portions the noncontrast head CT appear within normal limits CT Results Date: 04/17/19 - Re-Assessments/Exams Free Text/Narrative Re-Assessment/Exam: 04/17/19 13:00 patient just had a proximally 42nd tonic-clonic seizure. He hasn't got back on the bathroom when it occurred. She was somewhat postictal after the event. This would actually now be her fifth seizure for today. Will discuss case with neurology and consider transfer to higher level care for further evaluation and treatment. Empirically started on Keppra. Free Text/Narrative Re-Assessment/Exam: 04/17/19 14:52 placed a call to [facility] in [place] and waiting to discuss the case with neurology. Discussed case with Dr. Russell. Shakir martinez . Recommends hospitalist admit and he will consult. Discussed case with Dr. Chew for direct admit transfer by ambulance. Departure - Departure Time of Disposition: 14:59 Disposition: DC/Tfer to Other 70 Condition: Fair Clinical Impression: Seizure - Discharge Information *PRESCRIPTION DRUG MONITORING PROGRAM REVIEWED*: Not Applicable *COPY OF PRESCRIPTION DRUG MONITORING REPORT IN PATIENT NIMISHA: Not Applicable Instructions: Seizure, Adult, [id number] Referrals: Brit Marley MD [Primary Care Provider] - Forms: ED Department Discharge, Interfacility Transfer EMTALA Additional Instructions: transfer for direct admission for further evaluation by the neurologist Dr. Russell at [facility] - My Orders Last 24 Hours: My Active Orders 04/17/19 12:58 Peripheral IV Insertion Adult [OM.PC] Stat 04/17/19 12:59 Peripheral IV Care [RC] . DIRECTED Sodium Chloride 0.9% [Saline Flush] 10 ml FLUSH ASDIRECTED PRN - Assessment/Plan Last 24 Hours: My Active Orders 04/17/19 12:58 Peripheral IV Insertion Adult [OM.PC] Stat 04/17/19 12:59 Peripheral IV Care [RC] . DIRECTED Sodium Chloride 0.9% [Saline Flush] 10 ml FLUSH ASDIRECTED PRN
[2019-04-17] MEDS ORDERED: Sodium Chloride 0.9% 10 ML Syringe FLUSH PRN (12:59)
[2019-04-17] MEDS ORDERED: levETIRAcetam 1,000 MG in Sodium Chloride 0.9% 100 ML IV ONE (12:59)
--- NOTE | 2019-04-17 14:04 | CT ---
Head CT Technique: Multiple axial sections through the brain were obtained. Intravenous contrast was not utilized. Comparison: No prior intracranial imaging is available. Findings: Ventricles along with basal cisterns and sulci over the convexities are within normal limits for the patient's age. Small low density finding is noted within the posterior left basal ganglia most likely due to prominent perivascular space. No other abnormal parenchymal densities are seen. No evidence of intracranial hemorrhage. No midline shift or mass effect is seen. Bone window settings were reviewed which shows the visualized sinuses to appear clear. Mastoid sinuses that are seen also appear clear. No acute calvarial abnormality is seen. Impression: 1. Small low density finding within the posterior left basal ganglia. This most likely is due to prominent perivascular space. Given the patient's symptoms of seizures, MRI could be considered to confirm. 2. Other portions of the noncontrast head CT study appear within normal limits. Diagnostic code #3
== END 2019-04-17 15:40 | disposition other institution (70) ==
LOC: JD.ED 11:39
DX: R56.9 Unspecified convulsions (principal)
CPT/HCPCS: 36415; 70450; 80053; 80306; 80320; 81001; 82550; 84703; 85007; 85027; 96365; 99285; J1953; J7030; G0480

== ENCOUNTER 2019-05-13 12:43 | Emergency (ER) | payer MEDICAID ==
[2019-05-13] MEDS ORDERED: levETIRAcetam 500 MG in Sodium Chloride 0.9% 100 ML IV ONE ×2 (13:21→17:06)
[2019-05-13] MEDS ORDERED: Acetaminophen 325 MG Tab PO ONE (13:22)
[2019-05-13] MEDS ORDERED: LORazepam 2 MG/ML SDV IVPUSH ONE (13:42)
--- NOTE | 2019-05-13 13:42 | EDM.PDOC ---
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 She states that she was recently diagnosed with a seizure disorder in April. Had been taking Keppra 1000mg twice daily. This was increased two weeks ago. The patient reports that she can tell when a seizure is coming on and so she looks at the clock and again when she wakes up. She reports that she has had 7 seizures between 10:00-11:30 this morning. Says they are not grand mal type of seizures, but that her body just stiffens up and she becomes unresponsive. Her seizures this morning, per her report, lasted 30-45 seconds at a time. The patient has seen neurology at [facility] in Dr. Drew Freedman. 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: , 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 Musculoskeletal History: Reports: Fracture Neurological History: Reports: Seizure Psychiatric History: Reports: Depression Endocrine/Metabolic History: Reports: Obesity/BMI 30+ Hematologic History: Reports: None Immunologic History: Reports: None Oncologic (Cancer) History: Reports: None Dermatologic History: Reports: None - Infectious Disease History Infectious Disease History: Reports: None - Past Surgical History HEENT Surgical History: Reports: Tonsillectomy GI Surgical History: Reports: Cholecystectomy Female Surgical History: Reports: Section <Esteban Trejo Last Filed: 05/13/19 15:03> Social & Family History - Family History Family Medical History: Noncontributory - Tobacco Use Smoking Status *Q: Never Smoker - Caffeine Use Caffeine Use: Reports: Coffee - Recreational Drug Use Recreational Drug Use: No <Esteban Trejo - Last Filed: 05/13/19 15:03> ED ROS GENERAL - Review of Systems Review Of Systems: See Below Constitutional: Reports: No Symptoms. Denies: Fever, Chills HEENT: Reports: No Symptoms Respiratory: Reports: No Symptoms Cardiovascular: Reports: No Symptoms Endocrine: Reports: No Symptoms GI/Abdominal: Reports: No Symptoms Musculoskeletal: Reports: No Symptoms Skin: Reports: No Symptoms Neurological: Reports: Headache, Seizure. Denies: Confusion, Dizziness, Syncope , Tingling, Trouble Speaking Psychiatric: Reports: No Symptoms Hematologic/Lymphatic: Reports: No Symptoms Immunologic: Reports: No Symptoms <Esteban Trejo Last Filed: 05/13/19 15:03> - Physical Exam Exam: See Below Exam Limited By: No Limitations General Appearance: Alert, WD/WN, No Apparent Distress, Obese Eye Exam: Bilateral Eye: PERRL Ears: Normal External Exam, Hearing Grossly Normal Nose: Normal Inspection, No Blood Throat/Mouth: Normal Inspection, Normal Lips, Normal Teeth, Normal Voice, No Airway Compromise Head Exam: Atraumatic, Normocephalic Neck: Normal Inspection, Supple, Non-Tender Respiratory/Chest: No Respiratory Distress, Lungs Clear, Normal Breath Sounds, Chest Non-Tender Cardiovascular: Normal Peripheral Pulses, Regular Rate, Rhythm, No Edema, No Murmur GI/Abdominal: Normal Bowel Sounds, Soft, Non-Tender (Female) Exam: Deferred Rectal (Female) Exam: Deferred Neuro Exam (Abbreviated): Alert, Oriented, CN II-XII Intact, Normal Cognition. No: Memory Loss Remote Events, Memory Loss Recent Events Back Exam: Normal Inspection, Full Range of Motion Extremities: Normal Inspection, Normal Range of Motion, Normal Capillary Refill Psychiatric: Normal Affect, Normal Mood Skin Exam: Warm, Dry, Intact, Normal Color, No Rash <Esteban Trejo - Last Filed: 05/13/19 15:03> Course <Esteban Trejo - Last Filed: 05/13/19 15:03> <Darwin Harris - Last Filed: 05/16/19 13:50> - Vital Signs Last Recorded V/S: Last Vital Signs Temp 97.4 F 05/13/19 17:48 Pulse 70 05/13/19 17:48 Resp 20 05/13/19 17:48 BP 112/69 05/13/19 17:48 Pulse Ox 97 05/13/19 17:48 - Orders/Labs/Meds Labs: Laboratory Tests 05/13/19 05/13/19 05/13/19 Range/Units 13:35 13:35 15:15 WBC 11.47 H (3.98-10.04) K/mm3 RBC 5.14 (3.98-5.22) M/mm3 Hgb 13.6 (11.2-15.7) gm/dl Hct 41.4 (34.1-44.9) % MCV 80.5 (79.4-94.8) fl MCH 26.5 (25.6-32.2) pg MCHC 32.9 (32.2-35.5) g/dl RDW Std Deviation 47.3 H (36.4-46.3) fL Plt Count 384 H (182-369) K/mm3 MPV 10.5 (9.4-12.3) fl Neut % (Auto) 66.9 (34.0-71.1) % Lymph % (Auto) 26.5 (19.3-51.7) % [place] % (Auto) 5.8 (4.7-12.5) % Eos % (Auto) 0.6 L (0.7-5.8) Baso % (Auto) 0.2 (0.1-1.2) % Neut # (Auto) 7.67 H (1.56-6.13) K/mm3 Lymph # (Auto) 3.04 (1.18-3.74) K/mm3 [place] # (Auto) 0.67 H (0.24-0.36) K/mm3 Eos # (Auto) 0.07 (0.04-0.36) K/mm3 Baso # (Auto) 0.02 (0.01-0.08) K/mm3 Sodium 139 (136-145) mEq/L Potassium 3.7 (3.5-5.1) mEq/L Chloride 106 (98-107) mEq/L Carbon Dioxide 28 (21-32) mEq/L Anion Gap 8.7 (5-15) BUN 9 (7-18) mg/dL Creatinine 0.9 (0.55-1.02) mg/dL Est Cr Clr Drug Dosing 96.96 mL/min Estimated GFR (MDRD) > 60 (>60) mL/min BUN/Creatinine Ratio 10.0 L (14-18) Glucose 82 (74-106) mg/dL Lactic Acid 0.7 (0.4-2.0) mmol/L Calcium 9.1 (8.5-10.1) mg/dL Total Bilirubin 0.3 (0.2-1.0) mg/dL AST 24 (15-37) U/L ALT 93 H (14-59) U/L Alkaline Phosphatase 78 (46-116) U/L Total Protein 7.7 (6.4-8.2) g/dl Albumin 3.9 (3.4-5.0) g/dl Globulin 3.8 gm/dL Albumin/Globulin Ratio 1.0 (1-2) Meds: Medications Discontinued Medications Generic Name Dose Route Start Last Admin Trade Name Freq PRN Reason Stop Dose Admin Acetaminophen 650 mg 05/13/19 13:22 05/13/19 13:49 Tylenol PO 05/13/19 13:23 650 mg NOW ONE Administration Levetiracetam 500 mg/ Sodium 105 mls @ 400 mls/hr 05/13/19 13:21 05/13/19 13: 49 Chloride IV 05/13/19 13:35 400 mls/hr ONETIME ONE Administration Levetiracetam 500 mg/ Sodium 105 mls @ 400 mls/hr 05/13/19 17:06 05/13/19 17: 20 Chloride IV 05/13/19 17:20 400 mls/hr ONETIME ONE Administration Lorazepam 1 mg 05/13/19 13:42 05/13/19 13:52 Ativan IVPUSH 05/13/19 13:43 1 mg ONETIME ONE Administration - Re-Assessments/Exams Free Text/Narrative Re-Assessment/Exam: 05/13/19 13:38 Pt stated that she felt like she was going to have a seizure, as she said she can tell when they are coming on. I witnessed the patient having a seizure that lasted about 45 seconds. Pt's upper body stiffened up and was unresponsive during the event. After the seizure, te patient was arousable to voice, but was lethargic. I ordered for the patient to have a dose of 1mg IV ativan after consult with Dr. Harris. 05/13/19 15:04 Lab work reveals WBC 11.47 and ALT 93 otherwise is unremarkable. I have ordered a lactic acid level, after consult with Dr. Harris, to evaluate the result of the 7 seizures earlier today as this should be elevated. (Esteban Trejo) Free Text/Narrative Re-Assessment/Exam: 05/16/19 13:49 Initial hx and exam was done by Esteban Holley, AIRPORT SALES AGENT student. I agree with hx and exam as documented. I have also examined and interviewed patient. Discharge instr. as documented. (Darwin Harris) Departure <Esteban Trejo - Last Filed: 05/13/19 15:03> - Departure Time of Disposition: 17:32 Condition: Fair <Darwin Harris - Last Filed: 05/16/19 13:50> - Departure Disposition: Home, Self-Care 01 Clinical Impression: Seizure - Discharge Information Instructions: Seizure, Adult Referrals: Brit Marley MD [Primary Care Provider] - Forms: ED Department Discharge Additional Instructions: Rest, you have been given 500 mg Keppra IV 2 while here in the ED and also Ativan 1 mg IV. Continue to not drive for at least 3 months or until cleared by your Neurologist. A Keppra level has been ordered and sent out. That typically takes about 4 working days for results. Follow-up with your regular medical provider in about one week for recheck and results. Call for appointment. Sleep deprived EEG in about 8 days as planned.
[2019-05-13] MEDS ORDERED: Sodium Chloride 0.9% 500 ML IV ONE (14:36)
== END 2019-05-13 17:45 | disposition home or self-care (01) ==
LOC: JD.ED 12:43
DX: G40.909 Epilepsy, unspecified, not intractable, without status epilepticus (principal); K21.9 Gastro-esophageal reflux disease without esophagitis; E66.9 Obesity, unspecified; Z79.899 Other long term (current) drug therapy; Z88.5 Allergy status to narcotic agent; Z91.018 Allergy to other foods
CPT/HCPCS: 80053; 80177; 83605; 85025; 96365; 96375; 96376; 99284; A9270; J1953; J2060; J7030; 36415; 99283; J7050

== ENCOUNTER 2019-06-22 10:35 | Emergency (ER) | payer MEDICAID ==
--- NOTE | 2019-06-22 16:07 | MR ---
MRI brain Technique: T1 sagittal; T2, T2 FLAIR, T1 and diffusion axial; T1 weighted coronal; T1 fat suppressed axial images through the internal auditory canals T2 thin gradient echo axial images through the internal auditory canals. Comparison: Prior head CT study of 04/17/19. Findings: Ventricles along with basal cisterns and sulci over the convexities appear within normal limits for the patient's age. Normal signal void is seen within the major cerebral arteries within the skull base. No abnormal signal is seen within the brain parenchyma. No midline shift or mass effect is seen. No acute diffusion abnormalities are seen. Contents of the internal auditory canals appear unremarkable. No cerebellopontine angle cistern mass is seen. Impression: 1. No abnormality is identified on MRI study of the brain. Diagnostic code #1 This report was dictated in [place] Standard Time
--- NOTE | 2019-06-22 16:42 | EDM.PDOC ---
ED HPI GENERAL MEDICAL PROBLEM - General Chief Complaint: General Stated Complaint: DIZZY- OTHER PROBLEMS SENT BY CLINIC Time Seen by Provider: 06/22/19 11:08 Source of Information: Reports: Patient, RN Notes Reviewed - History of Present Illness INITIAL COMMENTS - FREE TEXT/NARRATIVE: 19-year-old female comes in with symptoms of generalized weakness, dizziness, mittens numbness and tingling of her left hand and arm. She had new-onset seizure about 2 months ago, has been started on Keppra. This last week or so she states she gets short stabbing shooting pains of the right scalp and also gets numbness of her left hand in warm. She has had no recent cough, sore throat fever or chills. Nausea or vomiting. Eating and drinking satisfactorily. She has not seen her neurologist for these more recent symptoms. She is in the process of changing from one neurologist to another. 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: , 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 Musculoskeletal History: Reports: Fracture Neurological History: Reports: Seizure Psychiatric History: Reports: Depression Endocrine/Metabolic History: Reports: Obesity/BMI 30+ Hematologic History: Reports: None Immunologic History: Reports: None Oncologic (Cancer) History: Reports: None Dermatologic History: Reports: None - Infectious Disease History Infectious Disease History: Reports: None - Past Surgical History HEENT Surgical History: Reports: Tonsillectomy GI Surgical History: Reports: Cholecystectomy Female Surgical History: Reports: Section Social & Family History - Family History Family Medical History: Noncontributory - Tobacco Use Smoking Status *Q: Current Every Day Smoker Years of Tobacco use: 5 Packs/Tins Daily: 0.2 - Caffeine Use Caffeine Use: Reports: None - Recreational Drug Use Recreational Drug Use: No ED ROS GENERAL - Review of Systems Review Of Systems: See Below Constitutional: Denies: Fever, Chills, Diaphoresis HEENT: Denies: Ear Pain, Rhinitis, Sinus Problem, Throat Pain Respiratory: Denies: Shortness of Breath Cardiovascular: Denies: Chest Pain GI/Abdominal: Denies: Abdominal Pain, Nausea, Vomiting Musculoskeletal: Denies: Neck Pain, Shoulder Pain, Arm Pain Skin: Reports: No Symptoms Neurological: Reports: Dizziness, Numbness, Tingling, Weakness (Generalized) ED EXAM, GENERAL - Physical Exam Exam: See Below General Appearance: Alert, Anxious, Mild Distress Eye Exam: Bilateral Eye: PERRL Throat/Mouth: Normal Inspection Head: Atraumatic Neck: Supple Respiratory/Chest: No Respiratory Distress, Lungs Clear, Normal Breath Sounds Cardiovascular: Regular Rate, Rhythm GI/Abdominal: Soft, Non-Tender. No: Guarding Back Exam: No: CVA Tenderness (L), CVA Tenderness (R) Extremities: Normal Inspection, Normal Range of Motion Neurological: Alert, Oriented, No Motor/Sensory Deficits Skin Exam: Warm, Dry, Normal Color Course - Vital Signs Last Recorded V/S: Last Vital Signs Temp 97.6 F 06/22/19 11:01 Pulse 100 06/22/19 11:01 Resp 16 06/22/19 11:01 BP 137/87 06/22/19 11:01 Pulse Ox 97 06/22/19 11:01 - Orders/Labs/Meds Labs: Laboratory Tests 06/22/19 06/22/19 Range/Units 12:10 12:10 WBC 11.91 H (3.98-10.04) K/mm3 RBC 5.06 (3.98-5.22) M/mm3 Hgb 13.6 (11.2-15.7) gm/dl Hct 42.0 (34.1-44.9) % MCV 83.0 (79.4-94.8) fl MCH 26.9 (25.6-32.2) pg MCHC 32.4 (32.2-35.5) g/dl RDW Std Deviation 47.2 H (36.4-46.3) fL Plt Count 438 H (182-369) K/mm3 MPV 10.3 (9.4-12.3) fl Neut % (Auto) 68.2 (34.0-71.1) % Lymph % (Auto) 22.8 (19.3-51.7) % [place] % (Auto) 7.7 (4.7-12.5) % Eos % (Auto) 0.9 (0.7-5.8) Baso % (Auto) 0.2 (0.1-1.2) % Neut # (Auto) 8.13 H (1.56-6.13) K/mm3 Lymph # (Auto) 2.71 (1.18-3.74) K/mm3 [place] # (Auto) 0.92 H (0.24-0.36) K/mm3 Eos # (Auto) 0.11 (0.04-0.36) K/mm3 Baso # (Auto) 0.02 (0.01-0.08) K/mm3 Manual Slide Review Abnormal smear Sodium 141 (136-145) mEq/L Potassium 4.3 (3.5-5.1) mEq/L Chloride 106 (98-107) mEq/L Carbon Dioxide 27 (21-32) mEq/L Anion Gap 12.3 (5-15) BUN 14 (7-18) mg/dL Creatinine 0.9 (0.55-1.02) mg/dL Est Cr Clr Drug Dosing 96.15 mL/min Estimated GFR (MDRD) > 60 (>60) mL/min BUN/Creatinine Ratio 15.6 (14-18) Glucose 84 (74-106) mg/dL Calcium 9.4 (8.5-10.1) mg/dL Total Bilirubin 0.4 (0.2-1.0) mg/dL AST 19 (15-37) U/L ALT 46 (14-59) U/L Alkaline Phosphatase 66 (46-116) U/L Total Protein 7.4 (6.4-8.2) g/dl Albumin 3.4 (3.4-5.0) g/dl Globulin 4.0 gm/dL Albumin/Globulin Ratio 0.9 L (1-2) TSH 3rd Generation 1.315 (0.358-3.74) uIU/mL - Re-Assessments/Exams Free Text/Narrative Re-Assessment/Exam: 06/23/19 08:31 Patient states that her previous MRI of 2-3 months ago was "abnormal". That was done in [place]. Based on current symptoms did do a repeat MRI today which did come back normal. Discharge instructions as documented Departure - Departure Time of Disposition: 16:38 Disposition: Home, Self-Care 01 Condition: Fair Clinical Impression: Scalp pain, Paresthesias - Discharge Information Referrals: Brit Marley MD [Primary Care Provider] - Forms: ED Department Discharge Additional Instructions: MRI of your brain today was normal, the lab work we looked at today was also normal. Alternate ice and heat to area of scalp pains as needed. Advil or ibuprofen 600 mg 3 times daily with food. You may take tylenol in between doses for extra pain relief as needed. See Dr Marley, clinic next available appt. Call [phone] for appt. Sepsis Event Note - Evaluation Sepsis Screening Result: No Definite Risk - Focused Exam Date Exam was Performed: 06/23/19 Time Exam was Performed: 08:28
== END 2019-06-22 16:47 | disposition home or self-care (01) ==
LOC: JD.ED 10:35
DX: R51 Headache (principal); R20.2 Paresthesia of skin; Z91.018 Allergy to other foods; Z88.5 Allergy status to narcotic agent; Z79.899 Other long term (current) drug therapy
CPT/HCPCS: 36415; 70551; 70551-26; 80053; 84443; 85025; 99282; 99285-25

== ENCOUNTER 2019-08-31 20:39 | Emergency (ER) | payer MEDICAID ==
[2019-08-31] MEDS ORDERED: Alum Hydrox/Mag Hydrox/Simeth 30 ML, Lidocaine 2% 15 ML PO ONE ×2 (21:04)
--- NOTE | 2019-08-31 21:06 | EDM.PDOC ---
ED HPI GENERAL MEDICAL PROBLEM - General Chief Complaint: Abdominal Pain Stated Complaint: abdominal pain Time Seen by Provider: 08/31/19 21:00 Left Lower Abdomen Pain Score (Numeric/FACES): 8 - Related Data Allergies Allergy/AdvReac Type Severity Reaction Status Date / Time banana Allergy Swelling Verified 08/31/19 20:51 meperidine [From Demerol] Allergy Cannot Verified 08/31/19 20:51 Remember Home Meds: Home Meds levETIRAcetam [Keppra] 1,000 mg PO BID 05/13/19 [History] medroxyPROGESTERone [Depo-Provera] 150 mg IM ASDIRECTED 05/13/19 [History] Ibuprofen [Motrin] 800 mg PO Q8H PRN 08/31/19 [History] Past Medical History Cardiovascular History: Reports: None Respiratory History: Reports: None Gastrointestinal History: Reports: GERD 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: , 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 Musculoskeletal History: Reports: Arthritis, Fracture Neurological History: Reports: Seizure Psychiatric History: Reports: Depression Endocrine/Metabolic History: Reports: Obesity/BMI 30+ Hematologic History: Reports: None Immunologic History: Reports: None Oncologic (Cancer) History: Reports: None Dermatologic History: Reports: None - Infectious Disease History Infectious Disease History: Reports: Chicken Pox - Past Surgical History HEENT Surgical History: Reports: Tonsillectomy GI Surgical History: Reports: Cholecystectomy Female Surgical History: Reports: Section Social & Family History - Family History Family Medical History: Noncontributory - Tobacco Use Smoking Status *Q: Former Smoker Used Tobacco, but Quit: Yes Month/Year Tobacco Last Used: 2015 - Caffeine Use Caffeine Use: Reports: None - Recreational Drug Use Recreational Drug Use: No ED ROS GENERAL - Review of Systems Review Of Systems: See Below Constitutional: Reports: No Symptoms HEENT: Reports: No Symptoms Respiratory: Reports: No Symptoms Cardiovascular: Reports: No Symptoms GI/Abdominal: Reports: Abdominal Pain. Denies: Black Stool, Bloody Stool, Constipation, Diarrhea, Nausea, Vomiting, Other : Reports: No Symptoms ED EXAM, GI/ABD - Physical Exam Exam: See Below Exam Limited By: No Limitations General Appearance: Alert, No Apparent Distress Head: Atraumatic, Normocephalic Neck: Normal Inspection, Supple, Non-Tender, Full Range of Motion Respiratory/Chest: No Respiratory Distress, Lungs Clear, Normal Breath Sounds, No Accessory Muscle Use, Chest Non-Tender Cardiovascular: Normal Peripheral Pulses, Regular Rate, Rhythm, No Edema, No Gallop, No JVD, No Murmur, No Rub GI/Abdominal Exam: Normal Bowel Sounds, Soft, Tender (Epigastric discomfort that goes into the left upper abdomen). No: Guarding, Rigid, Rebound Back Exam: Normal Inspection. No: CVA Tenderness (L), CVA Tenderness (R) Course - Vital Signs Last Recorded V/S: Last Vital Signs Temp 36.2 C 08/31/19 20:47 Pulse 94 08/31/19 20:47 Resp 18 08/31/19 20:47 BP 156/98 H 08/31/19 20:47 Pulse Ox 95 08/31/19 20:47 - Orders/Labs/Meds Meds: Medications Discontinued Medications Generic Name Dose Route Start Last Admin Trade Name Freq PRN Reason Stop Dose Admin Al Hydroxide/Mg Hydroxide 30 0 ml 08/31/19 21:04 08/31/19 21:20 ml/ Lidocaine HCl 15 ml PO 08/31/19 21:05 45 ml ONETIME ONE Administration Sucralfate 1 gm 08/31/19 21:45 Carafate PO 08/31/19 21:46 ONETIME ONE - Re-Assessments/Exams Free Text/Narrative Re-Assessment/Exam: 08/31/19 21:50 Patient had a dramatic improvement with her symptoms with a GI cocktail however she was not overwhelmed by the flavor of it. Gave her the option of starting Carafate and a PPI or famotidine and she would like to start famotidine without the Carafate. Discussed the benefits of the PPIs such as being stronger and more effective but she would like to try the famotidine Departure - Departure Time of Disposition: 21:52 Disposition: Home, Self-Care 01 Clinical Impression: Dyspepsia - Discharge Information Referrals: Brit Marley MD [Primary Care Provider] - Forms: ED Department Discharge Additional Instructions: Return to the emergency room with any questions problems or worsening symptoms.. Try famotidine this is the generic for Pepcid, 20 mg twice daily for 1 week then 1 daily thereafter. Follow up with your regular provider in 1 to 2 weeks to discuss how things are going. Sepsis Event Note - Evaluation Sepsis Screening Result: No Definite Risk - Focused Exam Vital Signs: Vital Signs Temp Pulse Resp BP Pulse Ox 08/31/19 20:47 36.2 C 94 18 156/98 H 95 Date Exam was Performed: 08/31/19 Time Exam was Performed: 21:50
[2019-08-31] MEDS ORDERED: Sucralfate Suspension 1 GM/10 ML Cup PO ONE (21:45)
== END 2019-08-31 22:14 | disposition home or self-care (01) ==
LOC: JD.ED 20:39
DX: R10.13 Epigastric pain (principal); R56.9 Unspecified convulsions; E66.9 Obesity, unspecified; Z68.42 Body mass index [BMI] 45.0-49.9, adult; Z87.891 Personal history of nicotine dependence; Z88.5 Allergy status to narcotic agent; Z91.018 Allergy to other foods
CPT/HCPCS: 99283; A9270; 99282

== ENCOUNTER 2023-06-30 12:59 | Emergency (ER) | payer MEDICAID | END 2023-06-30 14:53 | disposition home or self-care (01) | LOC: JD.ED 12:59 | DX: R00.0 Tachycardia, unspecified (principal); Z91.018 Allergy to other foods; Z88.5 Allergy status to narcotic agent; Z86.16 Personal history of COVID-19 | CPT/HCPCS: 93005; 93010; 93246; 99284 ==

== ENCOUNTER 2024-01-13 12:38 | Emergency (ER) | payer MEDICAID, OTHER | END 2024-01-13 16:13 | disposition home or self-care (01) | LOC: JD.ED 12:38 | DX: S90.112A Contusion of left great toe without damage to nail, initial encounter (principal); E66.9 Obesity, unspecified; Z68.28 Body mass index [BMI] 28.0-28.9, adult; Z86.16 Personal history of COVID-19; Z88.8 Allergy status to other drugs, medicaments and biological substances; X58.XXXA Exposure to other specified factors, initial encounter; Y92.89 Other specified places as the place of occurrence of the external cause; Y99.0 Civilian activity done for income or pay | CPT/HCPCS: 73630-26-LT; 73630-LT; 99283 ==

== ENCOUNTER 2024-02-08 15:28 | Emergency (ER) | payer MEDICAID, OTHER ==
[2024-02-08 19:46] LABS: BASOPHILS PERCENT AUTO 0.1 % (0.0-1.0); EOSINOPHILS PERCENT AUTO 0.1 % (0.0-6.0); HEMATOCRIT 43.3 % (37.0-47.0); HEMOGLOBIN 14.4 gm/dl (12.0-16.0); IMMATURE GRAN ABSOLUTE AUTO 0.03 K/mm3 (0.00-0.05); IMMATURE GRAN PERCENT AUTO 0.2 % (0.0-0.4); LYMPHOCYTES ABSOLUTE AUTO 2.9 K/mm3 (1.0-4.8); LYMPHOCYTES PERCENT AUTO 23.2 % (24.0-44.0); MEAN CORPUSCULAR HEMOGLOBIN 30.4 pg (28.0-32.0); MEAN CORPUSCULAR HGB CONC 33.3 g/dl (32.0-36.0); MEAN CORPUSCULAR VOLUME 91.5 fl (83.0-99.0); MEAN PLATELET VOLUME 9.9 fl (9.4-12.3); MONOCYTES ABSOLUTE AUTO 0.8 K/mm3 (0.0-0.8); MONOCYTES PERCENT AUTO 6.5 % (0.0-8.0); NEUTROPHILS ABSOLUTE AUTO 8.8 K/mm3 (1.8-7.7); NEUTROPHILS PERCENT AUTO 69.9 % (41.0-71.0); PLATELET COUNT,PLT 383 K/mm3 (150-400); RED BLOOD CELL COUNT 4.73 M/mm3 (4.10-5.30); WHITE BLOOD CELL COUNT,WBC 12.61 K/mm3 (3.9-11.3)
[2024-02-08] MEDS: Iopamidol 612 MG/ML 100 ML Bottle IVPUSH ONE (20:01)
[2024-02-08] MEDS: Sodium Chloride 0.9% 10 ML Syringe FLUSH ONE (20:01)
[2024-02-08 20:02] LABS: APPEARANCE,URINE CLEAR (Clear); BILIRUBIN,URINE 1+ (Negative); COLOR,URINE YELLOW (Yellow); GLUCOSE,URINE NEGATIVE (Negative); KETONES,URINE NEGATIVE (Negative); LEUKOCYTE ESTERASE,URINE NEGATIVE (Negative); NITRITE,URINE NEGATIVE (Negative); OCCULT BLOOD,URINE NEGATIVE (Negative); PH,URINE 5.5 (5.0-8.0); PROTEIN,URINE NEGATIVE (Negative)
[2024-02-08] MEDS: Ketorolac 30 MG/ML SDV IVPUSH ONE (20:09)
[2024-02-08 20:10] LABS: A/G RATIO 1.1 (1-2); ALBUMIN 4.1 g/dl (3.4-5.0); ANION GAP 12.9 (5-15); BILIRUBIN TOTAL 0.6 mg/dL (0.2-1.0); C-REACTIVE PROTEIN 0.08 mg/dL (<0.30); CALCIUM 9.3 mg/dL (8.5-10.1); EST CRCL DRUG DOSING (CG) 80.51 mL/min; MAGNESIUM 1.7 mg/dL (1.8-2.4); POTASSIUM,K 3.9 mEq/L (3.5-5.1); PROTEIN TOTAL,TP 7.7 g/dl (6.4-8.2)
[2024-02-08] MEDS: Sodium Chloride 0.9% 10 ML Syringe FLUSH PRN (20:10)
[2024-02-08] MEDS: Sodium Chloride 0.9% 1,000 ML IV ONE (20:10)
== END 2024-02-08 21:20 | disposition home or self-care (01) ==
LOC: JD.ED 15:28
DX: A08.4 Viral intestinal infection, unspecified (principal); K21.9 Gastro-esophageal reflux disease without esophagitis; E66.9 Obesity, unspecified; Z86.16 Personal history of COVID-19; Z79.899 Other long term (current) drug therapy; Z88.8 Allergy status to other drugs, medicaments and biological substances
CPT/HCPCS: 36415; 74177; 80053; 81003; 83690; 83735; 85025; 86140; 96361; 96374; 99284; J1885; J3490; J7030; Q9967

== ENCOUNTER 2024-10-01 13:08 | Emergency (ER) | payer SELFPAY ==
[2024-10-01 14:03] LABS: APPEARANCE,URINE CLEAR (Clear); BILIRUBIN,URINE NEGATIVE (Negative); COLOR,URINE YELLOW (Yellow); GLUCOSE,URINE NEGATIVE (Negative); KETONES,URINE NEGATIVE (Negative); LEUKOCYTE ESTERASE,URINE NEGATIVE (Negative); NITRITE,URINE NEGATIVE (Negative); OCCULT BLOOD,URINE NEGATIVE (Negative); PH,URINE 7.5 (5.0-8.0); PROTEIN,URINE NEGATIVE (Negative)
[2024-10-01] MEDS: Ketorolac 60 MG/2 ML SDV IM ONE (14:12)
== END 2024-10-01 15:19 | disposition home or self-care (01) ==
LOC: JD.ED 13:08
DX: M79.652 Pain in left thigh (principal); E66.9 Obesity, unspecified; F17.210 Nicotine dependence, cigarettes, uncomplicated; Z88.8 Allergy status to other drugs, medicaments and biological substances; Z79.899 Other long term (current) drug therapy; Z90.49 Acquired absence of other specified parts of digestive tract; Z68.26 Body mass index [BMI] 26.0-26.9, adult; Z86.16 Personal history of COVID-19
CPT/HCPCS: 81003; 93971; 96372; 99284; J1885